=== PATIENT | male | born 1945 | race Caucasian/White ===

== ENCOUNTER 2023-03-31 07:38 | Outpatient (CLI) | payer MEDICARE ==
[2023-03-31] MEDS ORDERED: Iopamidol 370 76% 100 ML VIAL ONE (10:59)
== END 2023-03-31 07:39 | disposition home or self-care (01) ==
LOC: CSHCT 07:38
PROVIDERS: ATTEND Internal Medicine Cardiovascular Disease
DX: Z01.810 Encounter for preprocedural cardiovascular examination (principal); I48.0 Paroxysmal atrial fibrillation
CPT/HCPCS: 71275

== ENCOUNTER 2023-05-25 07:52 | Outpatient (CLI) | payer MEDICARE ==
[2023-05-25] MEDS ORDERED: Iopamidol 370 76% 100 ML VIAL ONE (09:09)
== END 2023-05-25 07:53 | disposition home or self-care (01) ==
LOC: CSHCT 07:52
PROVIDERS: ATTEND Internal Medicine Cardiovascular Disease
DX: I48.0 Paroxysmal atrial fibrillation (principal); Z95.818 Presence of other cardiac implants and grafts
CPT/HCPCS: 71275; 82565